=== PATIENT | female | born 1985 | race Caucasian/White ===

== ENCOUNTER → 2024-01-08 18:12 | Outpatient (REF) | payer BC, SELFPAY | LOC: MRI 3T 18:12 | PROVIDERS: ATTENDING PHYSICIAN Internal Medicine Endocrinology, Diabetes & Metabolism; FAMILY PHYSICIAN Family Medicine | DX: D35.2 Benign neoplasm of pituitary gland (principal) | CPT/HCPCS: 70553; A9575 ==

== ENCOUNTER → 2024-05-15 13:26 | Outpatient (REF) | payer BC, SELFPAY | LOC: HWRAD 13:26 | PROVIDERS: ATTENDING PHYSICIAN Student in an Organized Health Care Education/Training Program | DX: R05.1 Acute cough (principal) | CPT/HCPCS: 71046 ==